=== PATIENT | male | born 1975 | race Caucasian/White ===

== ENCOUNTER 2016-12-15 17:57 | Emergency (ER) | payer OTHER ==
[~2016-12-15] VITALS: Wt 117.9 kg
[~2016-12-15 17:57] MED LIST: ATARAX,VISTARIL50 MG PO; METHOCARBAMOL750 M1 PO; NATURE'S BLEND F1 MG PO; THERA TABS1 TAB PO; VITAMIN B-11 TAB PO
[2016-12-15] MEDS ORDERED: LASIX20 MG PO (18:05)
== END 2016-12-15 20:18 | disposition home or self-care (01) ==
LOC: ED 17:57
DX: R60.9 Edema, unspecified (principal); F17.200 Nicotine dependence, unspecified, uncomplicated

== ENCOUNTER → 2017-04-03 | Outpatient (CLI) | payer OTHER ==
[~2017-04-03] MED LIST changes: +LASIX20 MG PO
== END | disposition home or self-care (01) ==
LOC: US 08:46
DX: K76.0 Fatty (change of) liver, not elsewhere classified (principal); R10.11 Right upper quadrant pain; R16.1 Splenomegaly, not elsewhere classified

== ENCOUNTER → 2025-06-12 | Outpatient (CLI) | payer OTHER | END | disposition home or self-care (01) | LOC: CT 13:41 | PROVIDERS: ATTEND Student in an Organized Health Care Education/Training Program | DX: N23 Unspecified renal colic (principal); M16.0 Bilateral primary osteoarthritis of hip; M47.817 Spondylosis without myelopathy or radiculopathy, lumbosacral region ==